=== PATIENT | male | born 1980 | race African-American/Black ===

== ENCOUNTER 2016-06-04 11:23 | Outpatient (CLI) ==
[2016-06-04 11:44] LABS: BASOPHILS % (AUTO) 0.5 % (0.0-3.0); EOSINOPHILS # (AUTO) 0.1 K/ul (0.0-0.7); EOSINOPHILS % (AUTO) 1.1 % (0.0-7.0); HEMATOCRIT 46.6 % (42.0-52.0); HEMOGLOBIN 15.7 g/dl (14.0-18.0); IMMATURE GRANULOCYTE % (AUTO) 0.2 % (0.0-5.0); LYMPHOCYTES # (AUTO) 4.4 K/uL (0.60-3.4); LYMPHOCYTES % (AUTO) 49.7 (10.0-50.0); MEAN CORPUSCULAR HEMOGLOBIN 27.9 pg (27.0-31.0); MEAN CORPUSCULAR HGB CONC 33.7 (31.8-35.4); MEAN CORPUSCULAR VOLUME 82.8 fl (80.0-94.0); MONOCYTES # (AUTO) 0.6 K/uL (0.4-2.0); MONOCYTES % (AUTO) 6.3 (0-10); NEUTROPHILS # (AUTO) 3.7 K/ul (2.0-6.9); NEUTROPHILS % (AUTO) 42.2; PLATELET COUNT 187 10^3/uL (140-440); RED BLOOD COUNT 5.63 10^6/ul (4.70-6.10); WHITE BLOOD COUNT 8.84 K/ul (4.2-10.2)
[2016-06-04 12:36] LABS: BILIRUBIN,TOTAL 0.41 mg/dL (0.00-1.20); BUN/CREATININE RATIO 11.38; CALCIUM 9.6 mg/dL (8.2-10.2); CREATININE 1.23 mg/dL (0.60-1.10)
--- NOTE | 2016-06-04 14:13 | DI ---
EXAM: CHEST FRONTAL AND LATERAL VIEWS HISTORY: Cough. COMPARISON: None FINDINGS: Heart size and mediastinal contour within normal limits. No acute infiltrates. Tere l vascularity with no pleural fluid or pneumothorax. The bony thorax has no acute finding. IMPRESSION: No acute process.
== END 2016-06-04 11:24 | disposition home or self-care (01) ==
LOC: LAB 11:23
PROVIDERS: ATTEND Nurse Practitioner Family
DX: R05 Cough (principal); I49.9 Cardiac arrhythmia, unspecified; Z72.0 Tobacco use; Z00.00 Encounter for general adult medical examination without abnormal findings
CPT/HCPCS: 36415; 80053; 80061; 84443; 85025; 93005; 93010

== ENCOUNTER 2016-06-06 08:29 | Outpatient (CLI) | END 2016-06-06 08:30 | disposition home or self-care (01) | LOC: WOUND 08:29 | PROVIDERS: ATTEND Nurse Practitioner Family | DX: L84 Corns and callosities (principal) | CPT/HCPCS: 99204; 99212 ==

== ENCOUNTER 2016-06-13 09:18 | Outpatient (CLI) | END 2016-06-13 09:19 | disposition home or self-care (01) | LOC: WOUND 09:18 | PROVIDERS: ATTEND Nurse Practitioner Family | DX: L84 Corns and callosities (principal) | CPT/HCPCS: 99212; 99213 ==

== ENCOUNTER 2016-07-29 11:49 | Emergency (ER) ==
[2016-07-29 12:00] VITALS: BP 166/113; TEMP 97.8; BMI 29.9
--- NOTE | 2016-07-29 12:11 | ED.PDOC ---
General ED Provider: Dr. JOSLYN IRIVN Chief Complaint: Earache Stated Complaint: earache Time Seen by Physician: 12:00 (SEEN WITH ROB) Mode of Arrival: Walk-In Information Source: Patient Exam Limitations: No limitations Primary Care Provider: DANISHA GOVEA Nursing and Triage Documentation Reviewed and Agree: Yes EENT Complaint Exam - Ear Complaint/Exam Symptoms Are: Still present Initial Severity: Mild Current Severity: Mild Character: Reports: Dull pain Aggravating: Reports: None Alleviating: Reports: None Associated Signs and Symptoms: Denies: Ear trauma, Ear swelling, Discharge, Fever, Hearing loss, Bleeding, Sore throat, Headache, URI symptoms, Foreign body sensation, Rash, Pain to external ear, Pain to external face Ear Surgical History: None Vesicles to External Pinna: No Vesicles to Tragus: No TMJ Tenderness: None Mastoid Tenderness: None Tragal Tenderness: None External Canal: Normal Review of Systems - Review Of Systems Constitutional: Reports: No symptoms Eyes: Reports: No symptoms Ears, Nose, Mouth, Throat: Reports: Ear pain Respiratory: Reports: No symptoms Cardiac: Reports: No symptoms GI: Reports: No symptoms : Reports: No symptoms Musculoskeletal: Reports: No symptoms Skin: Reports: No symptoms Neurological: Reports: No symptoms Endocrine: Reports: No symptoms Hematologic/Lymphatic: Reports: No symptoms All Other Systems: Reviewed and Negative Past Medical History - Past Medical History Previously Healthy: Yes Endocrine: Reports: None Cardiovascular: Reports: None Respiratory: Reports: None Hematological: Reports: None Gastrointestinal: Reports: None Genitourinary: Reports: None Neuro/Psych: Reports: None Musculoskeletal: Reports: None Cancer: Reports: None - Surgical History General Surgical History: Reports: None - Family History Family History: Reports: None - Social History Smoking Status: Current every day smoker, Heavy tobacco smoker Hx Substance Use: Yes (marijuana) Alcohol Screening: None Physical Exam - Physical Exam Appearance: Well-appearing, No pain distress, Well-nourished Eyes: RYDER, EOMI, Conjunctiva clear ENT: Oropharynx normal (bothe ears are impacted ) Respiratory: Airway patent, Breath sounds clear, Breath sounds equal, Respirations nonlabored Cardiovascular: RRR, Pulses normal, No rub, No murmur GI/: Soft, Nontender, No masses, Bowel sounds normal, No Organomegaly Musculoskeletal: Normal strength, ROM intact, No edema, No calf tenderness Skin: Warm, Dry, Normal color Neurological: Sensation intact, Motor intact, Reflexes intact, Cranial nerves intact, Alert, Oriented Psychiatric: Affect appropriate, Mood appropriate Critical Care Note - Critical Care Note Total Time (mins): 0 Course - Course Vital Signs: Temp Pulse Resp BP Pulse Ox 07/29/16 11:50 97.8 F 69 20 166/113 H 98 Departure - Departure Time of Disposition: 12:12 Disposition: HOME SELF-CARE Discharge Problem: Impacted cerumen of both ears, Ear problem Instructions: Cerumen Impaction (ED) Condition: Good Pt referred to PMD for follow-up: No Additional Instructions: must see [facility]. Please call your Family Physician as soon as possible to schedule a follow-up appointment. Allergies/Adverse Reactions: Allergies No Known Allergies Allergy (Unverified 06/04/16 10:39) Home Medications: Ambulatory Orders 1 [No Reported Medications] 07/29/16 Disposition Discussed With: Patient
== END 2016-07-29 12:25 | disposition home or self-care (01) ==
LOC: ED 11:49
DX: H61.23 Impacted cerumen, bilateral (principal); F17.210 Nicotine dependence, cigarettes, uncomplicated
CPT/HCPCS: 99282

== ENCOUNTER 2016-12-26 17:12 | Emergency (ER) ==
[2016-12-26 17:16] VITALS: BP 153/90; TEMP 98.7; BMI 33.1
[2016-12-26 17:56] LABS: BASOPHILS % (AUTO) 0.5 % (0.0-3.0); EOSINOPHILS # (AUTO) 0.2 K/ul (0.0-0.7); EOSINOPHILS % (AUTO) 2.2 % (0.0-7.0); HEMATOCRIT 41.9 % (42.0-52.0); IMMATURE GRANULOCYTE % (AUTO) 0.2 % (0.0-5.0); LYMPHOCYTES # (AUTO) 4.3 K/uL (0.60-3.4); LYMPHOCYTES % (AUTO) 53.2 (10.0-50.0); MEAN CORPUSCULAR HEMOGLOBIN 28.6 pg (27.0-31.0); MEAN CORPUSCULAR HGB CONC 35.8 (31.8-35.4); MEAN CORPUSCULAR VOLUME 79.8 fl (80.0-94.0); MONOCYTES # (AUTO) 0.7 K/uL (0.4-2.0); MONOCYTES % (AUTO) 9.1 (0-10); NEUTROPHILS # (AUTO) 2.8 K/ul (2.0-6.9); NEUTROPHILS % (AUTO) 34.8; PLATELET COUNT 193 10^3/uL (140-440); RED BLOOD COUNT 5.25 10^6/ul (4.70-6.10); WHITE BLOOD COUNT 8.02 K/ul (4.2-10.2)
--- NOTE | 2016-12-26 18:12 | CT ---
EXAM: CT scan thorax without contrast HISTORY: Cough COMPARISON: None. FINDINGS: Contiguous axial images obtained through the thorax without contrast utilizing 5-mm colli mation. Sagittal and coronal reconstructions were imaged and reviewed.. The thoracic inlet is unre markable. There are subcentimeter pretracheal lymph nodes. There has limit evaluation of hilar str uctures without contrast. The heart is normal in size without pericardial effusion.. Scattered foc i of minimal atelectasis is seen within the right middle lobe, and in both lower lobes.. There is n o evidence of infiltrate or effusion.. Bone windows reveals no evidence of lytic or blastic lesions. IMPRESSION: Minimal bilateral atelectasis as described. There is no evidence of infiltrate or effusion.
[2016-12-26 18:14] LABS: ALBUMIN 3.9 g/dL (3.4-5.0); ALBUMIN/GLOBULIN RATIO 1.03; ANION GAP 16.8; BILIRUBIN,TOTAL 0.27 mg/dL (0.00-1.20); BUN/CREATININE RATIO 12.29; CALCIUM 9.4 mg/dL (8.2-10.2); CREATININE 1.22 mg/dL (0.60-1.10); POTASSIUM 3.8 mmol/L (3.5-5.1); TOTAL PROTEIN 7.7 g/dL (6.4-8.2)
--- NOTE | 2016-12-26 18:21 | ED.PDOC ---
General ED Provider: Dr. 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 Symptoms Are: Still present Timing: Constant, Intermittent Initial Severity: Mild Current Severity: None Character: Reports: Non-productive cough Aggravating: Reports: None Alleviating: Reports: None Associated Signs and Symptoms: Denies: Rapid breathing, Dyspnea, Fever, Chills, Chest pain, Pleuritic chest pain, Wheezing, Hemoptysis, Dizziness, Calf pain, Calf swelling, Edema, URI, Nasal congestion, Hoarseness, Sinus discomfort, Vomiting, Sore throat, Weight loss, Decreased oral intake, Increased thirst, Increased appetite, Increased urination Related History: Reports: Similar episode History of Healthcare-Acquired Pneumonia: No Related Surgical History: Reports: None Pulmonary Embolism Risk Factors: None Cardiac Risk Factors: Reports: None Pseudomonas Risk Factors: Reports: None Tuberculosis Risk Factors: Reports: None Status Asthmaticus Risk Factors: Reports: None Home Oxygen Use: No Recent Stress Test: No Recent Echo/LV Function: No Current Antibiotic Use: No Current Asthma Medication Use: No Respiratory Distress: None Inadequate Respiratory Effort: No Dysphagia Present: No Stridor Present: No JVD Present: No Accessory Muscle Use: No Retractions: Not Present Diminished Breath Sounds: No Grunting Respirations: No Kussmaul Respirations: No Differential Diagnoses: Pneumonia, Bronchitis Review of Systems - Review Of Systems Constitutional: Reports: No symptoms Eyes: Reports: No symptoms Ears, Nose, Mouth, Throat: Reports: No symptoms Respiratory: Reports: Cough Cardiac: Reports: No symptoms GI: Reports: No symptoms : Reports: No symptoms Musculoskeletal: Reports: No symptoms Skin: Reports: No symptoms Neurological: Reports: No symptoms Endocrine: Reports: No symptoms Hematologic/Lymphatic: Reports: No symptoms All Other Systems: Reviewed and Negative Past Medical History - Past Medical History Previously Healthy: Yes Endocrine: Reports: None Cardiovascular: Reports: None Respiratory: Reports: None Hematological: Reports: None Gastrointestinal: Reports: None Genitourinary: Reports: None Neuro/Psych: Reports: None Musculoskeletal: Reports: None Cancer: Reports: None - Surgical History General Surgical History: Reports: None - Family History Family History: Reports: None - Social History Smoking Status: Current every day smoker, Heavy tobacco smoker Hx Substance Use: Yes (marijuana) Alcohol Screening: None Physical Exam - Physical Exam Appearance: Well-appearing, No pain distress, Well-nourished Eyes: RYDER, EOMI, Conjunctiva clear ENT: Ears normal, Nose normal, Oropharynx normal Respiratory: Airway patent, Breath sounds clear, Breath sounds equal, Respirations nonlabored Cardiovascular: RRR, Pulses normal, No rub, No murmur GI/: Soft, Nontender, No masses, Bowel sounds normal, No Organomegaly Musculoskeletal: Normal strength, ROM intact, No edema, No calf tenderness Skin: Warm, Dry, Normal color Neurological: Sensation intact, Motor intact, Reflexes intact, Cranial nerves intact, Alert, Oriented Psychiatric: Affect appropriate, Mood appropriate Critical Care Note - Critical Care Note Total Time (mins): 0 Course - Course Hematology/Chemistry: 12/26/16 17:30 12/26/16 17:30 Orders, Labs, Meds: Lab Review 12/26/16 17:30 WBC 8.02 RBC 5.25 Hgb 15.0 Hct 41.9 L MCV 79.8 L MCH 28.6 MCHC 35.8 H RDW Coeff of Jeferson 14.5 Plt Count 193 Immature Gran % (Auto) 0.2 Neut % (Auto) 34.8 Lymph % (Auto) 53.2 H Garza % (Auto) 9.1 Eos % (Auto) 2.2 Baso % (Auto) 0.5 Immature Gran # (Auto) 0.0 Neut # 2.8 Lymph # 4.3 H Garza # 0.7 Eos # 0.2 Baso # 0.0 Sodium 140 Potassium 3.8 Chloride 105 Carbon Dioxide 22 Anion Gap 16.8 BUN 15 Creatinine 1.22 H Estimated GFR (MDRD) 82.00 BUN/Creatinine Ratio 12.29 Glucose 88 Calcium 9.4 Total Bilirubin 0.27 AST 19 ALT 26 Alkaline Phosphatase 81 Total Protein 7.7 Albumin 3.9 Globulin 3.8 Albumin/Globulin Ratio 1.03 Orders Category Date Time Status EKG-(ED ONLY) Stat CARDIO 12/26/16 17:27 Ordered CBC W/ AUTO DIFF Stat LAB 12/26/16 17:30 Completed COMPREHENSIVE METABOLIC PANEL Stat LAB 12/26/16 17:[address] CHEST W/O CONTRAST Stat RADS 12/26/16 17:26 Completed Vital Signs: Temp Pulse Resp BP Pulse Ox 12/26/16 17:12 98.7 F 111 H 20 153/90 H 96 Departure - Departure Time of Disposition: 19:20 Disposition: HOME SELF-CARE Discharge Problem: Cough, Syncope and collapse Instructions: Syncope (ED), Chronic Cough (ED) Condition: Good Pt referred to PMD for follow-up: Yes Additional Instructions: Please call your Family Physician as soon as possible to schedule a follow-up appointment. Allergies/Adverse Reactions: Allergies No Known Allergies Allergy (Verified 12/26/16 17:16) Home Medications: Ambulatory Orders Cogentin 1 mg BID #60 09/20/16 Ziprasidone HCl [Geodon] 80 mg PO BID #60 09/20/16
== END 2016-12-26 18:54 | disposition home or self-care (01) ==
LOC: ED 17:12
DX: R55 Syncope and collapse (principal); R05 Cough; F17.210 Nicotine dependence, cigarettes, uncomplicated
CPT/HCPCS: 36415; 80053; 85025; 93005; 93010; 99283

== ENCOUNTER 2017-11-27 15:19 | Outpatient (CLI) | END 2017-11-27 15:20 | disposition home or self-care (01) | LOC: RAD 15:19 | PROVIDERS: ATTEND Nurse Practitioner Family | DX: N52.9 Male erectile dysfunction, unspecified (principal); R03.0 Elevated blood-pressure reading, without diagnosis of hypertension; Z72.0 Tobacco use | CPT/HCPCS: 36415; 80053; 80061; 84402; 84443; 85025 ==

== ENCOUNTER 2017-12-25 11:44 | Outpatient (CLI) | END 2017-12-25 11:45 | disposition home or self-care (01) | LOC: LAB 11:44 | PROVIDERS: ATTEND Physician Assistant | DX: R79.89 Other specified abnormal findings of blood chemistry (principal); N52.9 Male erectile dysfunction, unspecified | CPT/HCPCS: 36415; 80053; 80061; 85025 ==

== ENCOUNTER 2018-04-20 19:02 | Emergency (ER) ==
[2018-04-20 19:15] VITALS: BP 151/91; TEMP 99.4; BMI 32.8
[2018-04-20] MEDS ORDERED: LIDOCAINE HCL 1% SDV SUBCUT STA (19:22)
--- NOTE | 2018-04-20 19:35 | ED.PDOC ---
General ED Provider: Dr. ISABEL MONDRAGON-ER Chief Complaint: Laceration Stated Complaint: i coughed and passed out and hit my head--i must of lost consciousness Time Seen by Physician: 19:34 Mode of Arrival: Walk-In Information Source: Patient Exam Limitations: No limitations Primary Care Provider: DANISHA GOVEA Nursing and Triage Documentation Reviewed and Agree: Yes Does patient meet sepsis criteria?: No System Inflammatory Response Syndrome: Not Applicable Sepsis Protocol: For patient's 13 years and over: Temp is 96.8 and below OR 101 and greater Pulse >90 BPM Resp >20/minute Acutely Altered Mental Status Are patient's symptoms suggestive of a new infection, such as: -Pneumonia -Skin, Soft Tissue -Endocarditis -UTI -Bone, Joint Infection -Implantable Device -Acute Abdominal Infection -Wound Infection -Meningitis -Blood Stream Catheter Infection -Unknown Skin Complaint Exam - Laceration/Head/Facial Complaint/Exam Location of Injury: Forehead Mechanism of Injury: Laceration Onset/Duration: 30 min Symptoms Are: Still present Initial Severity: Mild Current Severity: Mild Aggravating: Movement Alleviating: Compression Associated Signs and Symptoms: Denies: Fever, Chills, Erythema, Numbness, Tingling Differential Diagnoses: Laceration Review of Systems - Review Of Systems Constitutional: Reports: No symptoms Eyes: Reports: No symptoms Ears, Nose, Mouth, Throat: Reports: No symptoms Respiratory: Reports: No symptoms Cardiac: Reports: No symptoms GI: Reports: No symptoms : Reports: No symptoms Musculoskeletal: Reports: No symptoms Skin: Reports: No symptoms Neurological: Reports: No symptoms Endocrine: Reports: No symptoms Hematologic/Lymphatic: Reports: No symptoms All Other Systems: Reviewed and Negative Past Medical History - Past Medical History Previously Healthy: Yes Endocrine: Reports: None Cardiovascular: Reports: None Respiratory: Reports: None Hematological: Reports: None Gastrointestinal: Reports: None Genitourinary: Reports: None Neuro/Psych: Reports: None Musculoskeletal: Reports: None Cancer: Reports: None - Surgical History General Surgical History: Reports: None - Family History Family History: Reports: None - Social History Smoking Status: Current every day smoker, Heavy tobacco smoker Hx Substance Use: Yes (marijuana occasionally/ALCOHOL IN THE PAST) Alcohol Screening: None - Immunizations Tetanus Shot up to Date: (UNKNOWN) Physical Exam - Physical Exam Appearance: Well-appearing, No pain distress, Well-nourished Eyes: RYDER ENT: Ears normal Neck: Supple Respiratory: Airway patent, Breath sounds clear, Breath sounds equal, Respirations nonlabored Cardiovascular: RRR, Pulses normal, No rub, No murmur GI/: Soft, Nontender, No masses, Bowel sounds normal, No Organomegaly Musculoskeletal: Normal strength, ROM intact, No edema, No calf tenderness Skin: Warm Neurological: Sensation intact, Motor intact, Reflexes intact, Cranial nerves intact, Alert, Oriented Psychiatric: Affect appropriate, Mood appropriate Interpretation - Radiology Interpretation Radiology Interpretation By: Radiologist Radiology Results: Negative Exam Interpreted: CT Scan Procedures - Laceration/Wound Repair No standard instances Wound Description: Linear Wound Length (cm): 2cm right forehead Wound Explored: Clean Wound Irrigated: Yes Wound Prep: Hibiclens Anesthesia: Lidocaine Wound Repaired With: Sutures Suture Size and Type: 4.o prolene Number of Sutures: 3 Layer Closure?: No Critical Care Note - Critical Care Note Total Time (mins): 0 Course - Course Orders, Labs, Meds: Orders Category Date Time Status Lidocaine HCl/Pf [Lidocaine HCl 1% Sdv] MEDS 04/20/18 19:22 Discontinued 5 ml SUBCUT ONCE STA CT CERVICAL SPINE W/O CONTRAST Stat RADS 04/20/18 19:[address] HEAD W/O CONTRAST Stat RADS 04/20/18 19:32 Completed Medications Discontinued Medications Generic Name Dose Route Start Last Admin Trade Name Freq PRN Reason Stop Dose Admin Lidocaine HCl 5 ml 04/20/18 19:22 04/20/18 19:27 Lidocaine Hcl 1% Sdv SUBCUT 04/20/18 19:23 5 ml ONCE STA Administration Vital Signs: Temp Pulse Resp BP Pulse Ox 04/20/18 19:03 99.4 F 105 H 20 151/91 H 95 Departure - Departure Time of Disposition: 19:35 Disposition: HOME SELF-CARE Discharge Problem: Laceration of forehead Qualifiers: Encounter type: initial encounter Qualified Code(s): S01.81XA - Laceration without foreign body of other part of head, initial encounter Instructions: Laceration (ED) Condition: Good Pt referred to PMD for follow-up: Yes IPMP verified?: No Additional Instructions: routine suture care---sutures out ni 7 days---return if any sigsn of infection Allergies/Adverse Reactions: Allergies No Known Allergies Allergy (Verified 04/20/18 19:14) Home Medications: Ambulatory Orders Cogentin 1 mg BID #60 09/20/16 Ziprasidone HCl [Geodon] 80 mg PO BID #60 09/20/16 Sildenafil Citrate [Viagra] 25 mg PO PRN PRN 04/20/18 Disposition Discussed With: Patient, Family
--- NOTE | 2018-04-20 19:55 | CT ---
EXAM: CT brain without contrast HISTORY: Head injury with loss of consciousness TECHNIQUE: CT of the brain without intravenous contrast FINDINGS: There is no acute hemorrhage midline shift or mass effect. No hydrocephalus or abnormal e xtra-axial fluid collection. No significant parenchymal attenuation abnormality. The bony cranium a ppears normal. The visualized paranasal sinuses are clear. Partial opacification of mastoid air gurpreet ls on the left. The middle ears are clear. Soft tissues without significant abnormality. IMPRESSION: 1. No intracranial abnormality. 2. Partial left mastoid effusion
--- NOTE | 2018-04-20 19:56 | CT ---
EXAM: CT cervical spine without contrast HISTORY: Head injury TECHNIQUE: Multi-slice transaxial helical with coronal and sagittal reformatted views. COMPARISON: None FINDINGS: The intervertebral joint spaces are well maintained. The vertebrae have normal height and alignment. No acute fractures or lithesis are observed. The prevertebral soft tissues have normal wi dth. The facet alignment is appropriate. Left mastoid air cells contain fluid. The right mastoid a ir cells are clear Segmental analysis: C2-C3: No significant disc herniation or central canal stenosis. There is mild left neural foramen s tenosis secondary to facet hypertrophy. The right neural foramen is maintained. C3-C4: A mild disc protrusion effaces thecal sac. The central canal diameter is mildly narrowed. T he left neural foramen is moderately narrowed secondary to facet and uncovertebral joint hypertrophy. The right neural foramen is mildly narrowed. C4-C5: A mild disc protrusion is suggested. The central canal diameter is maintained. Neural forami na are maintained. C5-C6: A mild disc protrusion is suggested. The central canal diameter is maintained. The left neur al foramen is mildly narrowed secondary to facet hypertrophy. Right neural foramen is maintained. C6-C7: No significant disc herniation, central canal stenosis, or neural foramen stenosis. C7-T1: No significant disc herniation, central canal stenosis, or neural foramen stenosis. IMPRESSION: 1. No acute fracture or lithesis. 2. Mild central canal stenosis at C3-C4. 3. Neural foramen stenosis; mild left at C2-C3, moderate left/mild right at C3-C4, and mild left at C5-C6. 4. Left mastoid effusion.
[2018-04-20] MEDS ORDERED: TENIVAC IM ONE (19:58)
== END 2018-04-20 20:11 | disposition home or self-care (01) ==
LOC: ED 19:02
DX: S01.81XA Laceration without foreign body of other part of head, initial encounter (principal); W19.XXXA Unspecified fall, initial encounter; F17.210 Nicotine dependence, cigarettes, uncomplicated
CPT/HCPCS: 90471; 90714; 99283

== ENCOUNTER 2018-05-15 09:02 | Outpatient (CLI) | END 2018-05-15 09:03 | disposition home or self-care (01) | LOC: RHC-LAB 09:02 | PROVIDERS: ATTEND Nurse Practitioner Family | DX: D72.820 Lymphocytosis (symptomatic) (principal); E78.5 Hyperlipidemia, unspecified | CPT/HCPCS: 36415; 80053; 80061; 85007; 85025 ==

== ENCOUNTER 2018-07-16 12:29 | Outpatient (CLI) | END 2018-07-16 12:30 | disposition home or self-care (01) | LOC: LAB 12:29 | PROVIDERS: ATTEND Physician Assistant | DX: R79.89 Other specified abnormal findings of blood chemistry (principal); N52.9 Male erectile dysfunction, unspecified | CPT/HCPCS: 36415; 82670; 84403 ==

== ENCOUNTER 2018-07-24 12:44 | Outpatient (CLI) | END 2018-07-24 12:45 | disposition home or self-care (01) | LOC: LAB 12:44 | PROVIDERS: ATTEND Nurse Practitioner Family | DX: N52.9 Male erectile dysfunction, unspecified (principal); R79.89 Other specified abnormal findings of blood chemistry; F20.9 Schizophrenia, unspecified; I10 Essential (primary) hypertension; E78.1 Pure hyperglyceridemia; Z72.0 Tobacco use | CPT/HCPCS: 36415; 83001; 83002; 84146; 85025 ==